=== PATIENT | male | born 1980 | race Two or more races ===

== ENCOUNTER 2018-03-13 15:13 | Emergency (ER) | payer OTHER ==
[2018-03-13] MEDS ORDERED: PROPARACAINE 0.5% OPHTH DROPS 15 ML RIGHTEYE STA (15:46)
[2018-03-13] MEDS ORDERED: MINERAL OIL/PETROLAT OPHTH OINT LEFTEYE STA (16:30)
--- NOTE | 2018-03-13 16:33 | ED Physician Documentation ---
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, maybe soap, maybe gas he irrigated for 30 min [employer] still uncomfortable upper lateral eye no contacts Review of Systems Eyes: reports: Irritation PD PAST MEDICAL HISTORY - Past Medical History Past Medical History: No - Present Medications Home Medications: Ambulatory Orders Medication Instructions Recorded Confirmed Propylene Glycol/Peg 400 2 drops OP Q2H PRN #1 bottle 03/13/18 [Lubricant Eye Drops] - Allergies Allergies/Adverse Reactions: Allergies Allergy/AdvReac Type Severity Reaction Status Date / Time No Known Drug Allergies Allergy Verified 03/13/18 15:20 - Social History Does the pt smoke?: No Smoking Status: Never smoker PD ED PE NORMAL - Vitals Vital signs reviewed: Yes - HEENT HEENT: Other (L eye: injected, no FB with maginfication, nor under lid with eversion, no abrasion witrh flourescein, no perf, not hazy, pH 7.0) Results - Vitals Vitals: Vital Signs - 24 hr 03/13/18 15:18 Temperature 36.4 C L Heart Rate 80 Respiratory 20 Rate Blood Pressure 138/87 H O2 Saturation 98 Oxygen O2 Source Room air Departure - Departure Disposition: 01 Home, Self Care Clinical Impression: Chemical exposure of eye Condition: Good Instructions: ED Chemical Conjunctivitis Follow-Up: KEVAN Gibbs [Provider Group] Prescriptions: Propylene Glycol/Peg 400 [Lubricant Eye Drops] 2 drops OP Q2H PRN #1 bottle PRN Reason: eye irritation Comments: There is no foreign body in your eye, no corneal or lid abrasion. You did a great job of irrigating out the eye and the pH is normal The eye is very inflamed so I have prescribed drops to soothe the irritation for the next fee days Forms: Activity restrictions
[2018-03-13 16:56] VITALS: BP 141/93
== END 2018-03-13 16:57 | disposition home or self-care (01) ==
LOC: ED 15:13
DX: Z77.098 Contact with and (suspected) exposure to other hazardous, chiefly nonmedicinal, chemicals (principal); H57.89 Other specified disorders of eye and adnexa
CPT/HCPCS: 99283; A9270; J3490